=== PATIENT | male | born 1990 | race African-American/Black ===

== ENCOUNTER 2017-02-09 00:19 | Emergency (ER) | payer MEDICAID ==
[~2017-02-09] VITALS: Ht 182.9 cm; Wt 82.0 kg
[~2017-02-09 00:19] MED LIST: DEFERASIROX; FOLI-43 PO
[2017-02-09] MEDS ORDERED: MORPHINE SULFATE 4 MG/ML CPJ (NOT FOR IM USE) IV STA (00:41)
[2017-02-09] MEDS ORDERED: ONDANSETRON HCL 4MG/2ML VIAL IV STA (00:41)
[2017-02-09] MEDS ORDERED: SODIUM CHLORIDE 0.9% 1,000 ML IV ONE (00:41)
[2017-02-09] MEDS ORDERED: DIPHENHYDRAMINE 50MG/ML VIAL IV ONE (00:45)
[2017-02-09 01:10] LABS: CHLORIDE 106 mEq/L (98-107); INDEX HEMOLYSI 3 (1-3); INDEX ICTERIC 3 (1-4); INDEX LIPEMIC 1 (1-3)
[2017-02-09 01:18] LABS: ALANINE AMINOTRANSFERASE 55 IU/L (13-61); ALBUMIN 3.5 g/dL (3.4-5.0); ANION GAP 11; CALCIUM 8.3 mg/dL (8.5-10.1); CARBON DIOXIDE 28 mEq/L (21-32); UREA NITROGEN BLOOD 8 mg/dL (7-21); eGFR > 60 mL/min (>60)
[2017-02-09 01:39] LABS: HEMOGLOBIN. 7.6 g/dL (14.0-18.0); MEAN CORPUSCULAR HEMOGLOBIN 35.7 pg (28.0-32.0); MEAN CORPUSCULAR HGB CONC 35.3 g/dL (31.0-37.0); MEAN CORPUSCULAR VOLUME 98.3 fL (80.0-94.0); PLATELET 218 x1000/uL (130-400); RED BLOOD CELL COUNT 2.11 mill/uL (4.7-6.1); RED CELL DISTRIBUTION WIDTH 27.9 % (11.6-14.6)
[2017-02-09 01:40] LABS: MEAN PLATELET VOLUME 8.7 fl (7.4-10.4)
[2017-02-09 01:42] LABS: HEMATOCRIT. 20.7 % (42.0-52.0)
[2017-02-09 02:46] LABS: ATYPICAL LYMPHOCYTES 4; NUCLEATED RED BLOOD CELLS 2 /100 WBC; PLATELET ESTIMATE NORMAL
[2017-02-09 02:47] LABS: ANISOCYTOSIS 1+
[2017-02-09 04:54] VITALS: BP 121/67
== END 2017-02-09 05:43 | disposition home or self-care (01) ==
LOC: ER 00:21
DX: D57.00 Hb-SS disease with crisis, unspecified (principal); I10 Essential (primary) hypertension; I50.9 Heart failure, unspecified; Z98.890 Other specified postprocedural states
CPT/HCPCS: 36415; 80053; 85025; 85044; 96361; 96374; 96375; 99285; J1200; J2270; J2405; J7030; Z7610

== ENCOUNTER 2018-01-24 05:22 | Emergency (ER) | payer MEDICAID ==
[~2018-01-24] VITALS: Ht 185.4 cm; Wt 68.0 kg
[2018-01-24] MEDS ORDERED: SODIUM CHLORIDE 0.9% 1,000 ML IV ONE ×2 (05:39→06:46)
[2018-01-24] MEDS ORDERED: DIPHENHYDRAMINE 50MG/ML VIAL IV ONE (05:45)
[2018-01-24] MEDS ORDERED: FENTANYL CITRATE/PF 50MCG/ML 2ML VIAL IV ONE (05:45)
[2018-01-24 06:27] LABS: INR 1.4; PROTHROMBIN TIME 14.5 sec (9.4-11.6)
[2018-01-24 06:30] LABS: CHLORIDE 108 mEq/L (98-107); ETHANOL BLOOD < 10 mg/dL
[2018-01-24 06:31] LABS: HEMATOCRIT. 26.2 % (42.0-52.0); HEMOGLOBIN. 9.2 g/dL (14.0-18.0); MEAN CORPUSCULAR HEMOGLOBIN 36.8 pg (28.0-32.0); MEAN CORPUSCULAR VOLUME 104.9 fL (80.0-94.0); MEAN PLATELET VOLUME 9.3 fl (7.4-10.4); PLATELET 200 x1000/uL (130-400); RED CELL DISTRIBUTION WIDTH 28.6 % (11.6-14.6)
[2018-01-24 06:56] LABS: CLARITY URINE CLEAR (CLEAR); COLOR URINE ORANGE (YELLOW); KETONES URINE NEGATIVE (NEGATIVE); LEUKOCYTE ESTERASE URINE TRACE (NEGATIVE); NITRITE URINE POSITIVE (NEGATIVE); OCCULT BLOOD URINE 2+ (NEGATIVE); PROTEIN URINE 3+ (NEGATIVE); SPECIFIC GRAVITY URINE 1.014 (1.005-1.030)
[2018-01-24] MEDS ORDERED: ONDANSETRON HCL 4MG/2ML VIAL IV ONE (07:00)
[2018-01-24] MEDS ORDERED: MORPHINE SULFATE 10 MG/ML CPJ IV ONE (07:00)
[2018-01-24] MEDS ORDERED: LEVOFLOXACIN 500MG PREMIX 100 ML IV ONE (07:30)
[2018-01-24] MEDS ORDERED: CEFTRIAXONE 1 G PREMIX 50 ML IV ONE (07:30)
[2018-01-24] MEDS ORDERED: FUROSEMIDE 20MG/2ML VIAL IVP ONE (07:30)
[2018-01-24 07:32] LABS: NUCLEATED RED BLOOD CELLS 8 /100 WBC; PLATELET ESTIMATE NORMAL
[2018-01-24 07:43] LABS: *BARBITURATES SCREEN URINE NEGATIVE (NEGATIVE); *BENZODIAZEPINES SCREEN URINE NEGATIVE (NEGATIVE); *COCAINE SCREEN URINE NEGATIVE (NEGATIVE); OPIATES URINE SCREEN PRESUMTIVE POSITIVE (NEGATIVE); PHENCYCLIDINE URINE SCREEN NEGATIVE (NEGATIVE)
[2018-01-24 07:44] LABS: *AMPHETAMINES SCREEN URINE NEGATIVE (NEGATIVE); CANNABINOID URINE SCREEN PRESUMTIVE POSITIVE (NEGATIVE); METHADONE URINE SCREEN NEGATIVE (NEGATIVE)
[2018-01-24] MEDS ORDERED: POTASSIUM CHLORIDE 20MEQ TABLET SR PO ONE (08:30)
[2018-01-24] MEDS ORDERED: IPRATROPIUM/ALBUTEROL 0.5-3(2.5)MG/3ML NEB HHN PRN (09:45)
[2018-01-24] MEDS ORDERED: CLONIDINE 0.1MG TABLET PO PRN (09:45)
[2018-01-24] MEDS ORDERED: HYDROMORPHONE HCL/PF 2MG/ML CPJ IM PRN (09:45)
[2018-01-24] MEDS ORDERED: ONDANSETRON HCL 4MG/2ML VIAL IV PRN (09:45)
[2018-01-24] MEDS ORDERED: CEFTRIAXONE 1 G PREMIX 50 ML IV SCH (09:45)
[2018-01-24] MEDS ORDERED: ACETAMINOPHEN 325MG TABLET PO PRN (09:45)
[2018-01-24] MEDS ORDERED: HYDROXYUREA 500MG CAPSULE PO SCH (10:00)
[2018-01-24] MEDS ORDERED: IOHEXOL-350 100 ML BOTTLE ONE (13:13)
[2018-01-24 14:50] VITALS: BP 127/64
[2018-01-25] MEDS ORDERED: FOLIC ACID 1MG TABLET PO SCH (09:00)
== END 2018-01-24 15:00 | disposition left against medical advice (07) ==
LOC: ER 05:22 → CANBEDREQ 18:23
DX: A41.9 Sepsis, unspecified organism (principal); D57.00 Hb-SS disease with crisis, unspecified; N39.0 Urinary tract infection, site not specified; I11.0 Hypertensive heart disease with heart failure; I50.43 Acute on chronic combined systolic (congestive) and diastolic (congestive) heart failure; D68.9 Coagulation defect, unspecified; D64.9 Anemia, unspecified; F12.10 Cannabis abuse, uncomplicated; F11.10 Opioid abuse, uncomplicated; E87.6 Hypokalemia; I67.1 Cerebral aneurysm, nonruptured; Z98.2 Presence of cerebrospinal fluid drainage device
CPT/HCPCS: 36415; 70450; 70496; 71045; 80053; 80305; 81003; 83605; 83690; 83880; 85025; 85044; 85610; 87040; 87086; 93005; 99291; G0482; J0696; J1200; J1940; J1956; J2270; J2405; J3010; J7030; Q9967; Z7610

== ENCOUNTER 2019-02-13 03:41 | Emergency (ER) | payer MEDICAID ==
[~2019-02-13] VITALS: Ht 182.9 cm; Wt 77.0 kg
[2019-02-13] MEDS ORDERED: MORPHINE SULFATE 4 MG/ML CPJ (NOT FOR IM USE) IV ONE ×2 (07:15→07:30)
[2019-02-13] MEDS ORDERED: HYDROCODONE/ACETAMINOPHEN 5/325MG TABLET PO ONE (07:30)
[2019-02-13 07:43] VITALS: BP 127/74
[2019-02-13 07:44] LABS: INR 1.3; PROTHROMBIN TIME 13.5 sec (9.1-11.1)
[2019-02-13 07:45] LABS: CHLORIDE 111 mEq/L (98-107)
[2019-02-13 08:33] LABS: HEMATOCRIT. 21.3 % (42.0-52.0); MEAN CORPUSCULAR VOLUME 112.1 fL (80.0-94.0); RED CELL DISTRIBUTION WIDTH 20.8 % (11.6-14.6)
[2019-02-13 09:04] LABS: HEMOGLOBIN. 7.6 g/dL (14.0-18.0)
[2019-02-13 09:47] LABS: PLATELET ESTIMATE NORMAL
[2019-02-13 09:50] LABS: PLATELET 187 x1000/uL (130-400)
== END 2019-02-13 07:59 | disposition left against medical advice (07) ==
LOC: ER 03:41
DX: D57.00 Hb-SS disease with crisis, unspecified (principal); I11.0 Hypertensive heart disease with heart failure; I50.9 Heart failure, unspecified; F12.10 Cannabis abuse, uncomplicated; Z98.890 Other specified postprocedural states
CPT/HCPCS: 36415; 80053; 85025; 85044; 85610; 99283; Z7610

== ENCOUNTER 2019-02-20 03:46 | Emergency (ER) | payer MEDICAID ==
[~2019-02-20] VITALS: Ht 177.8 cm; Wt 82.0 kg
[2019-02-20] MEDS ORDERED: SODIUM CHLORIDE 0.9% 1,000 ML IV NR (04:05)
[2019-02-20] MEDS ORDERED: MORPHINE SULFATE 4 MG/ML CPJ (NOT FOR IM USE) IV NR (04:05)
[2019-02-20] MEDS ORDERED: ONDANSETRON HCL 4MG/2ML INJ IV NR (04:05)
[2019-02-20] MEDS ORDERED: KETOROLAC 30MG/ML VIAL IV NR (04:05)
[2019-02-20 04:39] LABS: MEAN CORPUSCULAR VOLUME 113.2 fL (80.0-94.0); MEAN PLATELET VOLUME 10.2 fl (7.4-10.4); PLATELET 162 x1000/uL (130-400); RED BLOOD CELL COUNT 1.76 mill/uL (4.7-6.1); RED CELL DISTRIBUTION WIDTH 24.9 % (11.6-14.6)
[2019-02-20 04:41] LABS: CHLORIDE 109 mEq/L (98-107)
[2019-02-20 05:29] LABS: HEMATOCRIT. 19.9 % (42.0-52.0)
[2019-02-20 05:30] LABS: MEAN CORPUSCULAR HEMOGLOBIN 39.8 pg (28.0-32.0)
[2019-02-20 06:45] LABS: CLARITY URINE CLEAR (CLEAR); COLOR URINE DARK YELLOW (YELLOW); KETONES URINE NEGATIVE (NEGATIVE); LEUKOCYTE ESTERASE URINE NEGATIVE (NEGATIVE); NITRITE URINE NEGATIVE (NEGATIVE); OCCULT BLOOD URINE 2+ (NEGATIVE); PROTEIN URINE 2+ (NEGATIVE)
[2019-02-20] MEDS ORDERED: SODIUM CHLORIDE 0.9% 1,000 ML IV ONE (06:45)
[2019-02-20 06:56] LABS: NUCLEATED RED BLOOD CELLS 9 /100 WBC
[2019-02-20 06:58] LABS: PLATELET ESTIMATE NORMAL
[2019-02-20] MEDS ORDERED: FENTANYL CITRATE/PF 50MCG/ML 2ML VIAL IV ONE (08:15)
[2019-02-20 10:18] VITALS: BP 127/61
== END 2019-02-20 10:18 | disposition home or self-care (01) ==
LOC: ER 03:54 → CANBEDREQ 12:48
DX: D57.00 Hb-SS disease with crisis, unspecified (principal); D64.9 Anemia, unspecified; I11.0 Hypertensive heart disease with heart failure; I50.9 Heart failure, unspecified; F12.10 Cannabis abuse, uncomplicated; Z98.890 Other specified postprocedural states
CPT/HCPCS: 36415; 70450; 80053; 81003; 85025; 85044; 86850; 86900; 86901; 96374; 96375; 99284; J1885; J2270; J2405; J3010; J7030

== ENCOUNTER 2019-04-15 03:58 | Emergency (ER) | payer MEDICAID ==
[~2019-04-15] VITALS: Ht 185.4 cm; Wt 75.0 kg
[2019-04-15] MEDS ORDERED: SODIUM CHLORIDE 0.9% 1,000 ML IV ONE (04:14)
[2019-04-15] MEDS ORDERED: ONDANSETRON HCL 4MG/2ML INJ IV STA (04:14)
[2019-04-15] MEDS ORDERED: MORPHINE SULFATE 4 MG/ML CPJ (NOT FOR IM USE) IV STA (04:14)
[2019-04-15] MEDS ORDERED: ASPIRIN 81MG TABLET PO ONE (04:15)
[2019-04-15] MEDS ORDERED: HYDROMORPHONE HCL/PF 2MG/ML CPJ IV ONE (04:45)
[2019-04-15 04:52] LABS: HEMATOCRIT. 24.3 % (42.0-52.0); MEAN CORPUSCULAR VOLUME 115.1 fL (80.0-94.0); MEAN PLATELET VOLUME 9.5 fl (7.4-10.4); PLATELET 250 x1000/uL (130-400); RED BLOOD CELL COUNT 2.11 mill/uL (4.7-6.1); RED CELL DISTRIBUTION WIDTH 25.3 % (11.6-14.6)
[2019-04-15 04:58] LABS: CHLORIDE 109 mEq/L (98-107)
[2019-04-15] MEDS ORDERED: ACETAMINOPHEN 325MG TABLET PO ONE (05:45)
[2019-04-15 06:03] LABS: HEMOGLOBIN. 8.9 g/dL (14.0-18.0)
[2019-04-15 06:04] LABS: MEAN CORPUSCULAR HEMOGLOBIN 42.2 pg (28.0-32.0)
[2019-04-15] MEDS ORDERED: ACETAMINOPHEN 325MG TABLET PO PRN (06:15)
[2019-04-15 06:55] LABS: NUCLEATED RED BLOOD CELLS 13 /100 WBC; PLATELET ESTIMATE NORMAL
[2019-04-15 07:27] VITALS: BP 123/65
[2019-04-15] MEDS ORDERED: HYDR500C18 MT (13:15)
== END 2019-04-15 07:56 | disposition left against medical advice (07) ==
LOC: ER 03:58 → CANRESERV 07:07 → ENRESERV 07:07 → ER 07:56 → CANBEDREQ 19:53
DX: D57.01 Hb-SS disease with acute chest syndrome (principal); M79.10 Myalgia, unspecified site; R51 Headache; R06.02 Shortness of breath; I50.9 Heart failure, unspecified; Z79.899 Other long term (current) drug therapy
CPT/HCPCS: 36415; 71045; 80053; 83615; 83880; 84484; 85025; 85044; 93005; 96374; 96375; 99284; J1170; J2270; J2405; J7030

== ENCOUNTER 2019-04-15 08:19 | Inpatient (IN) | payer MEDICAID ==
[~2019-04-15] VITALS: Ht 188 cm; Wt 79.8 kg
[2019-04-15] MEDS ORDERED: MORPHINE SULFATE 4 MG/ML CPJ (NOT FOR IM USE) IV ONE (09:30)
[2019-04-15] MEDS ORDERED: SODIUM CHLORIDE 0.9% 1,000 ML IV ONE (09:30)
[2019-04-15 12:00] VITALS: BP 111/61
[2019-04-15 13:01] VITALS: BP 111/54
[2019-04-15] MEDS ORDERED: HYDR500C18 MT (13:15)
[2019-04-15] MEDS: MORPHINE SULFATE 2 MG/ML CPJ (NOT FOR IM USE) IV PRN ×3 (13:33→23:56)
[2019-04-15] MEDS: SODIUM CHLORIDE 0.9% 1,000 ML IV SCH (13:33)
[2019-04-15] MEDS: FOLIC ACID 1MG TABLET PO SCH (13:33)
[2019-04-15] MEDS ORDERED: ONDANSETRON HCL 4MG/2ML INJ IV PRN (14:30)
[2019-04-15] MEDS ORDERED: ACETAMINOPHEN 325MG TABLET PO PRN (14:30)
[2019-04-15 16:00] VITALS: BP 114/69
[2019-04-15] MEDS: HYDROCODONE/ACETAMINOPHEN 5/325MG TABLET PO PRN (16:52)
[2019-04-15 20:00] VITALS: BP 106/61
[2019-04-15 22:50] LABS: CLARITY URINE CLEAR (CLEAR); COLOR URINE DARK YELLOW (YELLOW); KETONES URINE NEGATIVE (NEGATIVE); LEUKOCYTE ESTERASE URINE TRACE (NEGATIVE); NITRITE URINE NEGATIVE (NEGATIVE); OCCULT BLOOD URINE NEGATIVE (NEGATIVE); PROTEIN URINE NEGATIVE (NEGATIVE); SPECIFIC GRAVITY URINE 1.012 (1.005-1.030)
[2019-04-15 22:52] LABS: *AMPHETAMINES SCREEN URINE NEGATIVE (NEGATIVE); *BARBITURATES SCREEN URINE NEGATIVE (NEGATIVE); *BENZODIAZEPINES SCREEN URINE NEGATIVE (NEGATIVE); *COCAINE SCREEN URINE NEGATIVE (NEGATIVE)
[2019-04-15 22:53] LABS: CANNABINOID URINE SCREEN PRESUMTIVE POSITIVE (NEGATIVE); METHADONE URINE SCREEN NEGATIVE (NEGATIVE); OPIATES URINE SCREEN PRESUMTIVE POSITIVE (NEGATIVE); PHENCYCLIDINE URINE SCREEN NEGATIVE (NEGATIVE)
[2019-04-16] VITALS: BP 113/66
[2019-04-16] MEDS: SODIUM CHLORIDE 0.9% 1,000 ML IV SCH (02:09)
[2019-04-16] MEDS: HYDROCODONE/ACETAMINOPHEN 5/325MG TABLET PO PRN (02:19)
[2019-04-16 04:00] VITALS: BP 109/76
[2019-04-16] MEDS: MORPHINE SULFATE 2 MG/ML CPJ (NOT FOR IM USE) IV PRN ×2 (04:46→09:29)
[2019-04-16 06:59] LABS: EOSINOPHILS % 1.6 % (0.0-5.0); LYMPHOCYTES % 38.2 % (20.0-50.0); MEAN CORPUSCULAR VOLUME 116.4 fL (80.0-94.0); MONOCYTES % 10.3 % (2.0-8.0); NEUTROPHILS % 48.9 % (40.0-76.0); PLATELET 190 x1000/uL (130-400); RED CELL DISTRIBUTION WIDTH 23.2 % (11.6-14.6)
[2019-04-16 07:43] LABS: CHLORIDE 112 mEq/L (98-107)
[2019-04-16 08:00] VITALS: BP 120/75
[2019-04-16 08:11] LABS: HEMATOCRIT. 19.8 % (42.0-52.0)
[2019-04-16 08:12] LABS: MEAN CORPUSCULAR HEMOGLOBIN 40.6 pg (28.0-32.0)
[2019-04-16 08:17] LABS: HEMOGLOBIN. 6.9 g/dL (14.0-18.0)
[2019-04-16] MEDS: FOLIC ACID 1MG TABLET PO SCH (09:28)
[2019-04-16 12:09] VITALS: BP 121/74
[2019-04-16 21:11] LABS: PLATELET ESTIMATE NORMAL
== END 2019-04-16 10:27 | disposition home or self-care (01) | DRG 662 ==
LOC: ER 08:19 → 6EST 11:58 → EDBEDREQSVC 11:59 → EDBEDREQ 11:59 → ENRESERV 12:08
PROVIDERS: ADMIT Internal Medicine; ATTEND Internal Medicine
DX: D57.00 Hb-SS disease with crisis, unspecified (principal); I11.0 Hypertensive heart disease with heart failure; I50.42 Chronic combined systolic (congestive) and diastolic (congestive) heart failure; R74.0 Nonspecific elevation of levels of transaminase and lactic acid dehydrogenase [LDH]; Z86.79 Personal history of other diseases of the circulatory system; Z98.2 Presence of cerebrospinal fluid drainage device
CPT/HCPCS: 36415; 80048; 80305; 84145; 93306; 93970; 96374; 96375; 99285; J2270; J7030

== ENCOUNTER 2019-04-25 03:45 | Emergency (ER) | payer MEDICAID ==
[~2019-04-25] VITALS: Ht 185.4 cm; Wt 82.0 kg
[~2019-04-25 03:45] MED LIST changes: +HYDR500C18 MT
[2019-04-25 06:12] VITALS: BP 113/54
[2019-04-25] MEDS ORDERED: KETOROLAC 30MG/ML VIAL IV STA (06:14)
[2019-04-25] MEDS ORDERED: METOCLOPRAMIDE HCL 10MG/2ML VIAL IV ONE (06:15)
== END 2019-04-25 07:04 | disposition left against medical advice (07) ==
LOC: ER 03:45
DX: R51 Headache (principal)
CPT/HCPCS: 99283; J1885; J2765; Z7610

== ENCOUNTER 2019-12-24 12:25 | Emergency (ER) | payer MEDICAID ==
[~2019-12-24] VITALS: Ht 185.4 cm; Wt 80.9 kg
[2019-12-24 12:39] VITALS: BP 118/72
== END 2019-12-24 14:45 | disposition left against medical advice (07) ==
LOC: ER 13:08
DX: Z53.21 Procedure and treatment not carried out due to patient leaving prior to being seen by health care provider (principal)

== ENCOUNTER 2020-01-31 04:07 | Emergency (ER) | payer MEDICAID ==
[~2020-01-31] VITALS: Ht 177.8 cm; Wt 100.0 kg
[2020-01-31] MEDS ORDERED: KETOROLAC 30MG/ML VIAL IV ONE (05:00)
[2020-01-31 06:32] VITALS: BP 126/63
[2020-01-31] MEDS ORDERED: HYDROCODONE/ACETAMINOPHEN 10/325MG TABLET PO ONE (07:15)
[2020-01-31] MEDS ORDERED: SODIUM CHLORIDE 0.9% 1,000 ML IV ONE (07:15)
== END 2020-01-31 09:09 | disposition left against medical advice (07) ==
LOC: ER 04:07
DX: D57.00 Hb-SS disease with crisis, unspecified (principal); I50.9 Heart failure, unspecified; Z79.899 Other long term (current) drug therapy
CPT/HCPCS: 96374; 99283; J1885; J7030

== ENCOUNTER 2020-02-07 03:10 | Emergency (ER) | payer MEDICAID ==
[~2020-02-07] VITALS: Ht 185.4 cm; Wt 77.0 kg
[2020-02-07] MEDS ORDERED: SODIUM CHLORIDE 0.9% 1,000 ML IV ONE (04:36)
[2020-02-07] MEDS ORDERED: KETOROLAC 30MG/ML VIAL IV STA (04:36)
[2020-02-07] MEDS ORDERED: HYDROCODONE/ACETAMINOPHEN 5/325MG TABLET PO STA (04:36)
[2020-02-07 04:56] LABS: CHLORIDE 111 mEq/L (98-107)
[2020-02-07 05:36] VITALS: BP 121/74
[2020-02-07 05:38] LABS: HEMATOCRIT. 23.3 % (42.0-52.0); HEMOGLOBIN. 8.2 g/dL (14.0-18.0); MEAN PLATELET VOLUME 11.1 fl (7.4-10.4)
[2020-02-07 05:40] LABS: PLATELET 203 x1000/uL (130-400); RED BLOOD CELL COUNT 1.97 mill/uL (4.7-6.1)
[2020-02-07 05:46] LABS: NUCLEATED RED BLOOD CELLS 5 /100 WBC; PLATELET ESTIMATE NORMAL
== END 2020-02-07 06:27 | disposition home or self-care (01) ==
LOC: ER 03:10
DX: D57.01 Hb-SS disease with acute chest syndrome (principal); Z88.6 Allergy status to analgesic agent; Z79.899 Other long term (current) drug therapy
CPT/HCPCS: 36415; 80053; 84484; 85025; 85044; 93005; 96374; 99284; J1885; J7030

== ENCOUNTER 2020-07-29 04:58 | Emergency (ER) | payer MEDICAID ==
[~2020-07-29] VITALS: Ht 182.9 cm; Wt 82.0 kg
[2020-07-29] MEDS ORDERED: KETOROLAC 30MG/ML VIAL IV STA (05:49)
[2020-07-29] MEDS ORDERED: ONDANSETRON HCL 4MG/2ML INJ IV STA (05:49)
[2020-07-29 06:10] LABS: HEMATOCRIT. 24.8 % (42.0-52.0); HEMOGLOBIN. 8.9 g/dL (14.0-18.0); MEAN CORPUSCULAR HEMOGLOBIN 42.2 pg (28.0-32.0); MEAN CORPUSCULAR VOLUME 117.8 fL (80.0-94.0); MEAN PLATELET VOLUME 10.4 fl (7.4-10.4); PLATELET 199 x1000/uL (130-400); RED BLOOD CELL COUNT 2.11 mill/uL (4.7-6.1); RED CELL DISTRIBUTION WIDTH 18.1 % (11.6-14.6)
[2020-07-29 06:11] LABS: CHLORIDE 108 mEq/L (98-107)
[2020-07-29] MEDS ORDERED: MORPHINE SULFATE 4 MG/ML CPJ (NOT FOR IM USE) IV STA (06:23)
[2020-07-29] MEDS ORDERED: DIPHENHYDRAMINE 50MG/ML VIAL IV ONE (06:30)
[2020-07-29 08:32] LABS: ATYPICAL LYMPHOCYTES 2; NUCLEATED RED BLOOD CELLS 2 /100 WBC; PLATELET ESTIMATE NORMAL
[2020-07-29 09:14] VITALS: BP 110/62
== END 2020-07-29 09:14 | disposition home or self-care (01) ==
LOC: ER 04:58
DX: D57.00 Hb-SS disease with crisis, unspecified (principal); I50.9 Heart failure, unspecified
CPT/HCPCS: 36415; 71045; 80053; 83880; 84484; 85025; 93005; 96374; 96375; 99285; J1200; J1885; J2270; J2405

== ENCOUNTER 2020-10-07 08:25 | Emergency (ER) | payer MEDICAID, OTHER ==
[~2020-10-07] VITALS: Ht 185.4 cm; Wt 81.0 kg
[2020-10-07] MEDS ORDERED: MORPHINE SULFATE 4 MG/ML CPJ (NOT FOR IM USE) IV STA (09:16)
[2020-10-07] MEDS ORDERED: SODIUM CHLORIDE 0.9% 1,000 ML IV ONE (09:30)
[2020-10-07 09:43] LABS: BASOPHILS % 0.7 % (0.0-2.0); CHLORIDE 111 mEq/L (98-107); EOSINOPHILS % 1.5 % (0.0-5.0); HEMATOCRIT. 21.3 % (42.0-52.0); HEMOGLOBIN. 7.7 g/dL (14.0-18.0); LYMPHOCYTES % 34.1 % (20.0-50.0); MEAN CORPUSCULAR VOLUME 116.7 fL (80.0-94.0); MEAN PLATELET VOLUME 9.6 fl (7.4-10.4); MONOCYTES % 13.8 % (2.0-8.0); NEUTROPHILS % 49.9 % (40.0-76.0); PLATELET 185 x1000/uL (130-400); RED BLOOD CELL COUNT 1.83 mill/uL (4.7-6.1); RED CELL DISTRIBUTION WIDTH 20.5 % (11.6-14.6)
[2020-10-07 10:10] LABS: PLATELET ESTIMATE NORMAL
[2020-10-07 11:07] VITALS: BP 115/68
== END 2020-10-07 12:00 | disposition home or self-care (01) ==
LOC: ER 08:25
DX: D57.00 Hb-SS disease with crisis, unspecified (principal); I50.9 Heart failure, unspecified
CPT/HCPCS: 36415; 71045; 80053; 85025; 85044; 93005; 96361; 96374; 99285; J2270; J7030